=== PATIENT | male | born 1950 | race Caucasian/White ===

== ENCOUNTER 2016-12-02 11:48 | Inpatient (IN) | payer MEDICARE, MEDICAID ==
[~2016-12-02] VITALS: Ht 172.7 cm; Wt 80.6 kg
[~2016-12-02 11:48] MED LIST: ANUSOL-HC25 MG RC; CALCIUM ACETAT667 M1 PO; HYDROCODONE 5MG/5 MG PO; LEXAPRO DPS10 MG PO; LISINOPRIL20 MG PO; LUNESTA2 MG PO; NEPHRO-VITE1 TAB PO; NEURONTIN300 MG PO; NEXIUM40 MG PO; RENVELA800 MG PO; SODIUM POLYSTYRENE SULFONATE PO; SORBITOL PO; STOOL SOFTENER100 M1 PO; SYNTHROID100 MCG PO; TYLENOL325 MG PO; [UNRECOGNIZED DRUG - OTHER] PO
[2016-12-06] MEDS ORDERED: NORCO 5-325 TA1 EACH PO (11:41)
[2016-12-06] MEDS ORDERED: RENAGEL800 MG PO (11:41)
[2016-12-06] MEDS ORDERED: AMBIEN DPS10 MG PO (11:41)
[2016-12-06] MEDS ORDERED: NEURONTIN DPS300 MG PO (11:41)
[2016-12-06] MEDS ORDERED: SENSIPAR60 MG PO (11:41)
[2016-12-06] MEDS ORDERED: TYLENOL DPS325 MG PO (11:42)
[2016-12-06] MEDS ORDERED: NORVASC5 MG PO (11:42)
[2016-12-06] MEDS ORDERED: PROTONIX40 MG PO (11:42)
[2016-12-06] MEDS ORDERED: COLACE-DPS100 MG PO (11:42)
--- NOTE | 2016-12-08 07:46 | HP ---
ADMIT: 12/02/2016 RM/LOC: 408 [facility] MR#: [id number] 2620 [facility] [address], [place] [address] [place] [address] History and Physical SEX: M AGE: 66 : 1950 DATE OF SERVICE: CHIEF COMPLAINT: Needs dialysis. HISTORY OF PRESENT ILLNESS: The patient is a 66-year-old male, who presented to the emergency room today needing dialysis. He has previously been cared for by Dr. Eduardo Nevarez. He had an extended vacation in [facility] and was getting dialysis there 2 days a week, but last was November 28. He then came back to the [facility] and has been unable to get re- established in a dialysis clinic. Finally today, felt like he probably should not wait anymore to have it done so came to the emergency room. His potassium was quite elevated as was his creatinine. Despite that, he said he felt actually fairly good. He denies any fatigue, abdominal pain, nausea, or chest pain. With his significantly elevated potassium, however, he was admitted. PAST MEDICAL HISTORY: The patient has end-stage renal disease, requiring hemodialysis. He also has hypertension, secondary hyperparathyroidism, primary hypothyroidism, anemia of chronic disease, history of DVTs, history of retinal hemorrhage, paroxysmal atrial fibrillation and a history of cellulitis of his AV fistula. Has had gastroesophageal reflux and history of abscess in his left upper leg and chronic insomnia. ALLERGIES: PENICILLIN AND LASIX. MEDICATIONS: 1. Renagel 1600 mg 3 times daily with meals. 2. Zolpidem 10 mg at bedtime. 3. Sensipar 60 mg at bedtime. 4. Gabapentin 300 mg daily. 5. Hydrocodone with acetaminophen 5/325, one every 6 hours as needed. 6. Amlodipine 5 mg at bedtime. SOCIAL HISTORY: The patient is a former smoker, quitting 35 years ago. FAMILY HISTORY: Significant for hypertension and bleeding issues. REVIEW OF SYSTEMS: CONSTITUTIONAL: No fevers or chills or generalized weakness. HEENT: No headaches or vision changes. Does were glasses. No colds or sore throat. CARDIAC: No chest pain or palpitations. RESPIRATORY: No shortness of breath or cough. GASTROINTESTINAL: No abdominal pain, nausea, or vomiting, and stools have been normal. GENITOURINARY: Very little urine output. MUSCULOSKELETAL: Denies any joint aches or pains. PSYCH: No depression or anxiety. NEURO: Denies any numbness, tingling, or weakness. ADMIT: 12/02/2016 RM/LOC: 408 [facility] MR#: [id number] [address] [address] [place] [address] History and Physical SEX: M AGE: 66 : 1950 PHYSICAL EXAMINATION: VITAL SIGNS: The patient is afebrile, so temp of 96.4, respirations 18, pulse 65, blood pressure 153/81, and sats are 99% on room air. GENERAL: He is alert and oriented x3 and in no acute distress. HEENT: Head is atraumatic and normocephalic. Sclerae are clear. Pupils are round and reactive. Nares are patent. Oropharynx looks moist without lesions. NECK: Supple with no lymphadenopathy or thyromegaly. HEART: Regular in rate and rhythm without murmurs. LUNGS: Sound clear to auscultation bilaterally. ABDOMEN: Soft, nondistended, and nontender with good bowel sounds. EXTREMITIES: No edema. Fistula site in the right arm looks normal. He has 1+ dorsalis pedis pulses. No focal neurologic deficits. PSYCH: Appropriate with normal mood and affect. LABORATORY DATA: CBC showed a white count 4.9, hemoglobin 11.3, and platelets 143. BMP showed a potassium is 7.2, BUN 77, creatinine 15.8, glucose 56, calcium 7.1, and magnesium 3.0. HIV was negative. EKG just showed a mildly prolonged p.r.n. interval. ASSESSMENT: 1. End-stage renal disease overdue for dialysis. 2. Severe hyperkalemia. 3. Hypertension. 4. Secondary hyperparathyroidism. PLAN: We will admit and Dr. Grace has already written dialysis orders. We will do that tonight, and he is planning on doing a shorter episode tonight and then another session in the morning. We will try to get him back in clinic, but the dialysis nurse mentions that he may need to stay until Thursday's dialysis as it takes some time to get him back in their system, so he may not be able to get it done this week unless he stays as an inpatient. We will discuss that further tomorrow. Li Campbell MD/ steffen JOB #: [id number] CC: Li Campbell, Attending Physician Li Campbell, Family Physician
--- NOTE | 2016-12-08 14:51 | CO ---
ADMIT: 12/02/2016 RM/LOC: 408 [facility] MR#: [id number] 2620 [facility] [address] [place], [place] [address] [place] [address] Consultation SEX: M AGE: 66 : 1950 DATE OF CONSULTATION: 12/02/2016 ATTENDING PHYSICIAN: Li Campbell CONSULTING PHYSICIAN: Shahida Grace MD REASON FOR CONSULTATION: End-stage renal disease on hemodialysis, hyperkalemia and hypertension. HISTORY OF PRESENT ILLNESS: The patient is a pleasant 66-year-old gentleman, who typically dialyzes on a Kopjhj-Ravhpompw-Wfujtx schedule. He used to dialyze with us until a couple months ago. He had gone to [place] and was dialyzing there. His last dialysis was on Thursday, five days ago. He presented to the emergency room today because reportedly he could not find a place to dialyze himself. It appears that arrangements for transfer of dialysis had not been made. He feels fairly well, reports that his breathing is okay. Denies any chest pain or dizziness or lightheadedness. He does report dietary potassium indiscretion and his potassium is up to 7.2 today. Otherwise, he has no complaints. REVIEW OF SYSTEMS: A complete review of systems is negative in detail except as mentioned in history of present illness above. PAST MEDICAL HISTORY: 1. 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 Access, right upper arm AV fistula. 2. Hypertension. 3. Hypothyroidism. 4. Hyperparathyroidism. 5. Anemia. 6. DVT. 7. Left eye retinal hemorrhage. 8. Paroxysmal atrial fibrillation. 9. Left arm AV fistula, cellulitis, and aneurysmal dilatation. That fistula had to be taken down. 10.GERD. 11.Insomnia. 12.Anxiety. ALLERGIES: PENICILLINS AND LASIX. FAMILY HISTORY: No family history of chronic kidney disease or renal replacement therapy. SOCIAL HISTORY: He lives in [place]. He is originally from [facility]. He quit smoking several years ago. No alcohol or recreational drug use. MEDICATIONS: Reviewed and addressed in the chart. ADMIT: 12/02/2016 RM/LOC: 408 [facility] MR#: [id number] [address] [address] [facility] [place] [address] Consultation SEX: M AGE: 66 : 1950 PHYSICAL EXAMINATION: VITAL SIGNS: Temperature 96.4 Fahrenheit, pulse 65, blood pressure 153/81. GENERAL: He is comfortable. HEENT: Head is nontraumatic and normocephalic. Extraocular movements are intact. No conjunctival pallor. Moist mucosa. CHEST: Clear to auscultation. CVS: Regular rhythm. S1, S2 heard. No rubs, murmurs, or gallops. ABDOMEN: Soft, nontender. EXTREMITIES: Trace lower extremity edema. SKIN: No rashes or nodules. NEUROLOGIC: Alert, awake, and oriented x3. He is able to move all his extremities. PSYCHIATRIC: Affect and memory within normal limits. MUSCULOSKELETAL: Major joints within normal limits. Range of motion within normal limits. ACCESS: Right upper arm AV fistula with good thrill and bruit. LABORATORY DATA: Reviewed. BMP with sodium 138, potassium 7.2, CO2 of 25, creatinine 15.8 with a BUN of 77. Hemoglobin 11.3. Calcium 7.1. ASSESSMENT AND PLAN: 1. End-stage renal disease, on hemodialysis. 2. Hypertension/volume expansion. 3. Hyperkalemia. 4. Azotemia. 5. Anemia in chronic kidney disease. 6. Renal osteodystrophy. Because of his hyperkalemia, I will plan to dialyze him tonight. Orders have been placed in the chart. I did senior genetic counselor him on dietary potassium restriction. He has received Kayexalate already. He will likely need dialysis in the a.m. again. His azotemia is secondary to lack of renal replacement therapy and I expect this to improve with dialysis. His hemoglobin is acceptable for his level of chronic kidney disease. As far as his renal osteodystrophy is concerned, I will continue Sensipar as well as Renagel. I will check a phosphorus level in the morning. Thank you for this consultation. Please do not hesitate to contact me with any questions. Shahida Grace MD/ steffen JOB #: [id number] CC: Li Campbell, Attending Physician Li Campbell, Family Physician
--- NOTE | 2016-12-13 07:02 | ER ---
ADMIT: 12/02/2016 RM/LOC: 408 [facility] MR#: [id number] [address] [facility] [address] [place], [place] [address] [place] [address] Emergency Room Report SEX: M AGE: 66 : 1950 DATE: 12/02/2016 CHIEF COMPLAINT: Weakness. HISTORY OF PRESENT ILLNESS: This is a 66-year-old, who has been in [facility] for the last 2 months. He just returned on Thursday and did have dialysis in [facility] on Thursday, but has not had dialysis since. He said he just started to really not feel good. COURSE IN THE ER: CBC, BMP, and EKG was done. His potassium is elevated at 7.2, magnesium is elevated at 3.0, his creatinine is 15.8, his BUN is 77, EKG was over-read by Dr. Olguin and is normal. No peaked T-waves. CBC showed WBC of 4.9, hemoglobin 11.3, hematocrit 35.6, and platelets 143. I did speak with Dr. Grace regarding this patient and also Dr. Campbell. Dr. Grace will be doing the dialysis. Dr. Campbell will do the admit. CLINICAL IMPRESSION: End-stage renal disease with hyperkalemia, in need of dialysis. JUAN Arguello / Niranjan Olguin MD / modl JOB #: [id number] CC: Li Campbell MD, Attending Physician Li Campbell MD, Family Physician
--- NOTE | 2017-01-07 00:54 | DS ---
ADMIT: 12/02/2016 RM/LOC: 408 [facility] MR#: [id number] 2620 [facility] [address] [place], [place] [address] [place] [address] General Discharge Summary SEX: M AGE: 66 : 1950 ADMISSION DATE: 12/02/2016 DISCHARGE DATE: 12/05/2016 FINAL DIAGNOSES: 1. Hyperkalemia. 2. End-stage renal disease. 3. Hypertensive chronic kidney disease, stage 5. 4. Paroxysmal atrial fibrillation. 5. Secondary hyperparathyroidism. 6. Hypothyroidism. 7. Anemia of chronic disease. 8. Anxiety disorder. 9. Gastroesophageal reflux disease without esophagitis. 10.Insomnia. REASON FOR ADMISSION: The patient is a 66-year-old male, who had been traveling out of the country for few months visiting family in [facility]. He did receive hemodialysis while he was there. Upon returning, he was having difficulty getting reestablished into dialysis again here and started not feeling well and knew he needed to get in for dialysis, so came to the emergency room. He did have a significantly elevated potassium level at 7.2. Creatinine was 15.8. White count 4.9. HOSPITAL COURSE: The patient was admitted and Dr. Grace with Nephrology was consulted, and did undergo dialysis both the evening of admission and again the next day. He did stay through the end of the week as they were unable to get him back into the system until the week following his admission, so he received dialysis again on the and then was discharged to home and was set up to start doing outpatient hemodialysis the following Thursday. The patient had no other complications while in the hospital, and his potassium did respond to dialysis therapy. DISCHARGE INSTRUCTIONS: The patient will be discharged to home to resume dialysis on Thursday, Thursday, and Thursday at [facility]. He will follow up ADMIT: 12/02/2016 RM/LOC: 408 [facility] MR#: [id number] 26[address] [facility] [address] [place], [place] [address] [place] [address] General Discharge Summary SEX: M AGE: 66 : 1950 with me on December [address] Grace on December 08. DISCHARGE MEDICATIONS: 1. Renagel 1600 mg three times daily with meals. 2. Zolpidem 10 mg at bedtime. 3. Sensipar 60 mg every evening. 4. Gabapentin 300 mg daily. 5. Hydrocodone/acetaminophen 5/325, one every 4-6 hours as needed. 6. Amlodipine 5 mg at bedtime. 7. Protonix 40 mg daily. 8. Colace 100 mg b.i.d. 9. Tylenol 650 mg q.4 hours as needed. Li Campbell MD/ steffen JOB #: [id number] CC: Li Campbell MD, Attending Physician Li Campbell MD, Family Physician
== END 2016-12-05 16:23 | disposition home or self-care (01) | DRG 640 ==
LOC: ER 11:48 → 4PCU 14:30
PROVIDERS: ADMIT Family Medicine
PROC: 5A1D60Z (ICD-10-PCS; principal; 2016-12-02)
DX: E87.5 Hyperkalemia (principal); N18.6 End stage renal disease; I12.0 Hypertensive chronic kidney disease with stage 5 chronic kidney disease or end stage renal disease; I48.0 Paroxysmal atrial fibrillation; N25.81 Secondary hyperparathyroidism of renal origin; E03.9 Hypothyroidism, unspecified; D63.1 Anemia in chronic kidney disease; F41.9 Anxiety disorder, unspecified; K21.9 Gastro-esophageal reflux disease without esophagitis; G47.00 Insomnia, unspecified; Z91.15 Patient's noncompliance with renal dialysis; Z99.2 Dependence on renal dialysis; Z87.891 Personal history of nicotine dependence; Z86.718 Personal history of other venous thrombosis and embolism